=== PATIENT | female | born 1975 | race Hispanic/Latino ===

== ENCOUNTER 2019-10-04 13:12 | Emergency (ER) | payer OTHER, MEDICAID, SELFPAY ==
[2019-10-04 13:14] VITALS: BP 107/73; PULSE 76; RESP 20; TEMP 37.2; O2SAT 99
[2019-10-04 13:50] LABS: Influenza A - CEPHEID Flu A NEGATIVE (NEGATIVE); Influenza B - CEPHEID Flu B POSITIVE (NEGATIVE)
--- NOTE | 2019-10-04 14:05 | ED_ITS ---
HPI - Fever <KAELA WhiteheadP- - Last Filed: 10/04/19 18:03> General Chief Complaint: Fever Stated Complaint: flu symptoms Time Seen by Provider: 10/04/19 13:45 Source: patient and family Mode of arrival: Ambulatory Limitations: no limitations History of Present Illness HPI Narrative: The patient is a 44 year female nonsmoker who denies pertinent medical history presents with chief complaint of 5 days of sore throat, muscle aches, fevers and chills. 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 She denies any nausea vomiting or diarrhea. She denies any ear pain or current abdominal pain she denies any dysuria urgency or frequency. She does complain of a dry cough. Review of Systems <[facility] - Last Filed: 10/04/19 18:03> Review of Systems Narrative: GENERAL: see HPI HEENT: See HPI RESPIRATORY: Denies dyspnea, cough, wheezing, hemoptysis, sputum. CARDIOVASCULAR: Denies chest pain, palpitations, orthopnea, edema, GASTROINTESTINAL: Denies nausea, vomiting, abdominal pain, diarrhea, constipation, melena. : Denies dysuria, frequency, incontinence, hematuria, urinary retention. MUSCULOSKELETAL: denies weakness, joint pain, or bony pain SKIN: Denies rash, skin lesions, or other NEUROLOGIC: Denies weakness, headache, numbness, change in speech, confusion, seizures, incoordination. PSYCHIATRIC: No concerning psychosocial issues. 12 point review of systems is negative except for those stated above Exam <KAELA WhiteheadP- - Last Filed: 10/04/19 18:03> Narrative Exam Narrative: GENERAL: This is a well-nourished, well-developed patient, lying on stretcher with mask on HEAD: Atraumatic. Normocephalic. No temporal or scalp tenderness. EYES: Pupils equal round and reactive. Extraocular motions intact. No scleral icterus. No injection or drainage. ENT: Nose without bleeding, purulent drainage or septal hematoma. Throat without erythema, tonsillar hypertrophy or exudate. Uvula midline. Airway patent. NECK: Trachea midline. No JVD or lymphadenopathy. Supple, nontender, no meningeal signs. CARDIOVASCULAR: Regular rate and rhythm without murmurs, gallops, or rubs. RESPIRATORY: Clear to auscultation. Breath sounds equal bilaterally. No wheezes, rales, or rhonchi. No cough. No increased respiratory effort. No accessory muscle use. GASTROINTESTINAL: Abdomen soft, non-tender, nondistended. No hepato- splenomegaly, or palpable masses. No guarding. Active bowel sounds all 4 quadrants. EXTREMITIES: No clubbing, cyanosis, or edema. No joint tenderness, effusion, or edema noted. BACK: Nontender without deformity or crepitance. No flank tenderness. NEURO: AOx3. SKIN: No rash or erythema. Initial Vital Signs Initial Vital Signs: Vital Signs Temperature 98.9 F 10/04/19 13:14 Pulse Rate 76 10/04/19 13:14 Respiratory Rate 20 10/04/19 13:14 Blood Pressure 107/73 10/04/19 13:14 Pulse Oximetry 99 10/04/19 13:14 <Iaz Hernandez DO - Last Filed: 10/04/19 18:52> Initial Vital Signs Initial Vital Signs: Vital Signs Temperature 98.9 F 10/04/19 13:14 Pulse Rate 76 10/04/19 13:14 Respiratory Rate 20 10/04/19 13:14 Blood Pressure 107/73 10/04/19 13:14 Pulse Oximetry 99 10/04/19 13:14 Course <JUJU WhiteheadBC - Last Filed: 10/04/19 18:03> Orders Ordered: ED Orders 10/04/19 13:20 Influenza A & B (PCR) Stat 10/04/19 14:09 Strep Grp A by PCR Rapid Stat Vital Signs Vital signs: Vital Signs - 8 hr 10/04/19 13:14 10/04/19 14:53 Temperature 98.9 F Pulse Rate 76 70 Respiratory Rate 20 16 Blood Pressure 107/73 111/81 Pulse Oximetry 99 99 <Iza Hernandez DO - Last Filed: 10/04/19 18:52> Orders Ordered: ED Orders 10/04/19 13:20 Influenza A & B (PCR) Stat 10/04/19 14:09 Strep Grp A by PCR Rapid Stat Vital Signs Vital signs: Vital Signs - 8 hr 10/04/19 13:14 10/04/19 14:53 Temperature 98.9 F Pulse Rate 76 70 Respiratory Rate 20 16 Blood Pressure 107/73 111/81 Pulse Oximetry 99 99 MDM - Fever <Nataly Banuelos MANAGER [employer] - Last Filed: 10/04/19 18:03> Lab Data Labs: Lab Results 10/04/19 10/04/19 Range/Units 13:20 14:09 Influenza A (RT-PCR) Flu a negative (NEGATIVE) Influenza B (RT-PCR) Flu b positive H (NEGATIVE) Group A Strep (PCR) Negative MDM Narrative Medical decision making narrative: The patient is a 44-year-old female presents with a chief complaint muscle aches chills and fever. She tested positive for the flu. She is concerned about strep throat as she has a sore throat. She tested negative for strep throat. I discussed at length rest, [id number] measures, pushing fluids. Encouraged PCP follow up if worsening or no improvement. Discussed coming back to the ER for any acute concerns such as inability keep down fluids etcetera. Patient is out of window for Tamiflu. No questions or concerns upon discharge states understanding of return precautions as well as follow-up care. <Iza Hernandez DO - Last Filed: 10/04/19 18:52> Lab Data Labs: Lab Results 10/04/19 10/04/19 Range/Units 13:20 14:09 Influenza A (RT-PCR) Flu a negative (NEGATIVE) Influenza B (RT-PCR) Flu b positive H (NEGATIVE) Group A Strep (PCR) Negative Discharge Plan Departure Patient Disposition: Home Clinical Impression: Influenza B Discharge Date/Time: 10/04/19 14:54 Instructions: DI for Influenza -- Adult Activity Restrictions/Additional Instructions: You tested positive for the flu today. You tested negative for strep. Please rest, push fluids use [id number] medications as needed and able. I've given you a note for several days off of work. Please follow-up with primary care provider, I've given you contact information to the [facility] learning disabilities resource teacher in case you do not have a Referrals: [facility] [Outside] Stand Alone Forms: Work Release Note
[2019-10-04 14:31] LABS: Strep Grp A by PCR Rapid Negative
[2019-10-04 14:53] VITALS: BP 111/81; PULSE 70; RESP 16; O2SAT 99
== END 2019-10-04 14:54 | disposition home or self-care (01) ==
PROVIDERS: Emergency Medicine; Emergency Provider Nurse Practitioner Family
DX: J10.1 Influenza due to other identified influenza virus with other respiratory manifestations (principal)
CPT/HCPCS: 87502; 87651; 99282

== ENCOUNTER 2020-07-16 14:11 | Emergency (ER) | payer OTHER, MEDICAID, SELFPAY ==
[2020-07-16 14:19] VITALS: BP 158/74; PULSE 72; RESP 12; TEMP 36.7; O2SAT 99; BMI 21.4
[2020-07-16 14:23] VITALS: BP 158/74
[2020-07-16] MEDS: PROPARACAINE 0.5% OPHTH SOL 2 DROPS EYE-RIGHT (15:09)
[2020-07-16] MEDS: FLUORESCEIN 1 MG STRIP EYE-RIGHT (15:09)
[2020-07-16] MEDS: POLYMYXIN B SULF/TRIMETH OPHTH 10 ML 2 DROPS EYE-RIGHT (15:57)
--- NOTE | 2020-07-16 22:47 | ED_ITS ---
HPI - Eye Problem <IVAN Gasca - Last Filed: 07/16/20 23:03> General Chief complaint: Eye Problems Stated complaint: rt eye irritated/ burning 2x days Time Seen by Provider: 07/16/20 14:46 Source: patient Mode of arrival: Ambulatory Limitations: no limitations History of Present Illness HPI Narrative: This is a 45 year female, nonsmoker, has noncontributing history presents to ED with significant other with chief complaint of right eye discomfort for last 4 days. Patient reports occasional piercing pain with occasional foreign body sensation which became worse last 2 days. She reports crusty eye discharge when she woke up in the morning changed from white to yellow color. Patient reports her right eye has been constantly watery. She denies wearing contact lenses but uses reading glasses as needed. Patient denies vision changes except when her eyes are watery. Patient denies exposure to conjunctivitis and denies upper respiratory infection symptoms. Reports upd ated tetanus immunization. Related Data Allergies Allergy/AdvReac Type Severity Reaction Status Date / Time No Known Drug Allergies Allergy Verified 07/16/20 14:23 Review of Systems <IVAN Gasca - Last Filed: 07/16/20 23:03> Review of Systems Narrative: General: Denies fever, chills, fatigue, malaise, sweats. HEENT: See HPI Respiratory: Denies dyspnea, cough, wheezing, hemoptysis, sputum. Cardiovascular: Denies chest pain, palpitations, orthopnea, edema. Gastrointestinal: Denies nausea, vomiting, abdominal pain, diarrhea, constipation, melena. : Denies dysuria, frequency, incontinence, hematuria, urinary retention. Skin: Denies rash, skin lesions, or other. Neurologic: Denies weakness, headache, numbness, change in speech, confusion, seizures, incoordination. Psychiatric: No concerning psychosocial issues. 12-point review of systems is negative except for those stated above. Patient History <IVAN Gasca - Last Filed: 07/16/20 23:03> Surgical History History of bilateral tubal ligation (Acute) Social History Smoking Status: Never smoker Smoking Status: Never smoker alcohol intake frequency: a few times a month Alcohol type: wine Substance Use Type: does not use Exam <IVAN Gasca - Last Filed: 07/16/20 23:03> Narrative Exam Narrative: General appearance: well developed, well nourished, in no acute distress. Head: normocephalic, atraumatic, no scalp lesions, non-tender. ENT: Bilateral auditory canals and tympanic membranes clear. Hearing grossly in tact. Nose without bleeding, purulent discharge, septal hematoma or deviation. Turbinate without erythema or swelling. Facial sinuses nontender to palpate. Mucous membrane moist, no mucosal lesion. Throat without erythema, tonsillar hypertrophy or exudate. Uvula in midline, airway patent. Neck/Thyroid: neck supple, full range of motion, no visible masses or meningeal signs. No JVD, non-tender without lymphadenopathy. Skin: no suspicious rashes, lesions over visible areas. Warm and dry and appropriate color for ethnicity. Heart: no clubbing, no cyanosis, no edema. S1 and S2 normal. RRR w/o murmurs, clicks, or bruits. Lungs: Breathing even and unlabored. No stridor. No accessory muscles used. Able to speak in full sentences. Chest: normal shape and expansion. Abdomen: non-obese, non-distended. Neurologic: alert and oriented. 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 Psych: good eye contact, normal affect. Initial Vital Signs Initial Vital Signs: Vital Signs Temperature 98.0 F 07/16/20 14:19 Pulse Rate 72 07/16/20 14:19 Respiratory Rate 12 07/16/20 14:19 Blood Pressure 158/74 H 07/16/20 14:19 Pulse Oximetry 99 07/16/20 14:19 Eyes Alignment and Position: alignment normal and position normal Periorbital: periorbital findings normal Eyelids: eyelids normal Conjunctivae: conjunctival abnormality right conjunctival injection; Negative for conjunctival icterus, without chemosis, without discharge and without subconjunctival hemmorhages Sclera: sclerae normal Cornea: corneas normal and fluorescein used (No increase uptake) Pupils: PERRL, not dilated, not fixed, regular and pupil size (3 mm bilaterally) EOM: EOM intact bilaterally Direct ophthalmoscopy: normal light reflex, anterior chamber normal and photophobia not present Other: Patient was unable to tolerate tonometry test for IOP measurement even after using proparacaine. Manually palpated bilateral orbits without tenderness or tightness. OD 20/25, OS 20/30, OU 20/20 <Iza Hernandez DO - Last Filed: 07/22/20 07:32> Initial Vital Signs Initial Vital Signs: Vital Signs Temperature 98.0 F 07/16/20 14:19 Pulse Rate 72 07/16/20 14:19 Respiratory Rate 12 07/16/20 14:19 Blood Pressure 158/74 H 07/16/20 14:19 Pulse Oximetry 99 07/16/20 14:19 Scores <Ernesto IVAN Hernandez - Last Filed: 07/16/20 23:03> GCS [place] coma scale eye opening: Spontaneous [place] coma scale verbal response: Orientated [place] coma scale motor response: [place] coma scale total score: 15 Course <[facility] IVAN Hernandez - Last Filed: 07/16/20 23:03> Orders Ordered: Discontinued Medications Fluorescein Sodium (Ful-Yoselin) 1 mg EYE-RIGHT NOW ONE Stop: 07/16/20 14:47 Last Admin: 07/16/20 15:09 Dose: 1 mg Documented by: DORIS Polymyxin/Trimethoprim Sulfate (Polytrim) 2 drops EYE-RIGHT NOW ONE Stop: 07/16/20 15:20 Last Admin: 07/16/20 15:57 Dose: 2 drop Documented by: DORIS Polymyxin/Trimethoprim Sulfate (Polytrim) 2 drops EYE-RIGHT Q3H Stop: 07/16/20 23:59 Proparacaine HCl (Parcaine 0.5% Ophth Hanna) 2 drops EYE-RIGHT NOW ONE Stop: 07/16/20 14:47 Last Admin: 07/16/20 15:09 Dose: 2 drop Documented by: DORIS <Iza Hernandez DO - Last Filed: 07/22/20 07:32> Orders Ordered: Discontinued Medications Fluorescein Sodium (Ful-Yoselin) 1 mg EYE-RIGHT NOW ONE Stop: 07/16/20 14:47 Last Admin: 07/16/20 15:09 Dose: 1 mg Documented by: DORIS Polymyxin/Trimethoprim Sulfate (Polytrim) 2 drops EYE-RIGHT NOW ONE Stop: 07/16/20 15:20 Last Admin: 07/16/20 15:57 Dose: 2 drop Documented by: DORIS Polymyxin/Trimethoprim Sulfate (Polytrim) 2 drops EYE-RIGHT Q3H Stop: 07/16/20 23:59 Proparacaine HCl (Parcaine 0.5% Ophth Hanna) 2 drops EYE-RIGHT NOW ONE Stop: 07/16/20 14:47 Last Admin: 07/16/20 15:09 Dose: 2 drop Documented by: DORIS [facility] - Eye Problem <IVAN Gasca - Last Filed: 07/16/20 23:03> Differential Diagnosis Differential diagnosis: Likely corneal abrasion, conjunctivitis, glaucoma and corneal ulcer Medical Records Attestation: I reviewed the patient's medical records. MDM Narrative Medical decision making narrative: This is a 45 year female presents to ED with right eye discomfort for last 4 days which became worse with yellowish eye discharge for last 2 days. No vision changes. Visual acuity 20/25 in right eye, 20/30 in left eye, 20/20 in bilateral eyes. Physical exam appreciated conjunctival injection. No foreign body, corneal abrasion appreciated with fluorescein stain with Wood's lamp exam. Unable to major IOP due to patient was not able to tolerate the procedure. Physical exam by palpation did not appreciate swelling, taught/hard eye globes. Patient was treated with antibio tic eyedrops, Polytrim. Patient does not use contact lenses. Patient advised to follow-up with telegraphic typewriter operator if her symptoms not improving next 1-2 and to follow-up with primary care physician. Return precautions were discussed with patient and patient verbalized understanding in agreement with the treatment plan. Discharge Plan Departure Patient Disposition: Home Clinical Impression: Traumatic hematoma of left upper arm Conjunctivitis Qualifiers: Conjunctivitis type: unspecified Laterality: right Qualified Code(s): H10.9 - Unspecified conjunctivitis Discharge Date/Time: 07/16/20 16:01 Instructions: DI for Conjunctivitis Activity Restrictions/Additional Instructions: You have been diagnosed with [right eye conjunctivitis.]. What to do: *Take your medications as directed. Use the eyedrops 1 drop on right eye every 3 hours while your awake for next 7 days. *Follow up with your primary care provider in 2-3 days, call for an appointment. Let them know you were seen in the ED and that we asked you to be seen in follow up. Please follow-up with Dr. Levy if there is no improvement or worsening in next couple of days. *Return to ED if you have any new, worsening, or concerning symptoms, such as [increasing pain, decreased vision, vomiting, redness, swelling and warmth spreading to right-sided face, headache, chest pain, breathing difficulty, fever or any acute concerns]. Referrals: Bill Pena MD [Primary Care Provider] - Arron Levy MD [Physician] - <Iza Hernandez DO - Last Filed: 07/22/20 07:32> Cosign ED Attending Cosignature Attestation: I was immediately available in the department for consultation. Documentation has been reviewed. I agree with assessment and plan.
--- NOTE | 2020-07-23 12:02 | PC.NURSE ---
Demographics faxed to ophthalmology @ . Call back number is ([phone])
== END 2020-07-16 16:01 | disposition home or self-care (01) ==
PROVIDERS: Emergency Provider Nurse Practitioner Family; PCP Family Medicine
DX: H10.9 Unspecified conjunctivitis (principal); S40.022A Contusion of left upper arm, initial encounter
CPT/HCPCS: 99282

== ENCOUNTER 2020-11-17 15:13 | Emergency (ER) | payer OTHER, SELFPAY ==
[2020-11-17 15:19] VITALS: BP 126/66; PULSE 77; RESP 16; TEMP 36.4; O2SAT 100; BMI 21.6
--- NOTE | 2020-11-17 15:33 | ED.GENADULT ---
HPI - General Adult General Chief complaint: Upper Respiratory Symptoms Stated complaint: sore throat over a week, left side ear pain, cough Time Seen by Provider: 11/17/20 15:17 Source: patient Mode of arrival: Ambulatory Limitations: no limitations History of Present Illness HPI narrative: Patient is a 45-year-old female here for evaluation of sinus congestion, cough, sore throat and left ear pain. She states that she has had the symptoms for over week. Has tried tea and honey for the sore throat and also took Sudafed yesterday with only minimal improvement. No fevers. No recent travel. No recent antibiotics. No sick contacts. Related Data Allergies Allergy/AdvReac Type Severity Reaction Status Date / Time No Known Drug Allergies Allergy Verified 11/17/20 15:22 Review of Systems Constitutional Constitutional: Denies chills and Denies fever(s) ENT Ears, Nose, Mouth, and Throat: Denies vertigo, Denies dizziness, Reports sinus pressure and Reports sore throat Comments: Left ear pain Respiratory Respiratory: Reports cough Gastrointestinal Gastrointestinal: Denies nausea Integumentary/Breasts Skin/Breast: Denies lesions and Denies rash Neurologic Neurologic: Denies vertigo and Denies dizziness Psychiatric Psychiatric: Denies anxiety Hematologic/Lymphatic On Anticoagulants: No Allergic/Immunologic Allergic/Immunologic: Denies urticaria Patient History Medical History Healthy adult Surgical History History of bilateral tubal ligation Social History Smoking Status: Never smoker Smoking Status: Never smoker alcohol intake frequency: a few times a month Alcohol type: wine Substance Use Type: does not use Exam Initial Vital Signs Initial Vital Signs: Vital Signs Temperature 97.6 F 11/17/20 15:19 Pulse Rate 77 11/17/20 15:19 Respiratory Rate 16 11/17/20 15:19 Blood Pressure 126/66 11/17/20 15:19 Pulse Oximetry 100 11/17/20 15:19 Const General: cooperative and comfortable Limitations: mental status not altered HENMT Head: normal to inspection and normocephalic Ears: TM normal on the right, EAC's normal and TM abnormal bulging on the left and dull on the left Mouth: oral mucosae normal Throat: uvula midline and postnasal drainage Resp Effort & Inspection: normal respiratory effort Auscultation: clear to auscultation bilaterally Cardio Rate: regular rate Rhythm: regular rhythm Skin Lesions: no lesions Rashes: no rashes Neuro General: patient alert and patient awake Cognition: normal cognition Speech: speech normal Extrem General: capillary refill normal Psych Appearance: grossly normal and well kempt Course Vital Signs Vital signs: Vital Signs - 8 hr 11/17/20 15:19 Temperature 97.6 F Pulse Rate 77 Respiratory Rate 16 Blood Pressure 126/66 Pulse Oximetry 100 Medical Decision Making Lab Data Lab results reviewed: Yes I reviewed the patient's lab results. Labs: Point of Care Testing Rapid Strep A Negative Point of care testing: Point of Care Testing Rapid Strep A Negative MDM Narrative Medical decision making narrative: Rapid strep is negative. Patient is nontoxic. No respiratory distress. Low suspicion for pneumonia. Does have bulging left tympanic membrane without erythema. Given her other her presenting symptoms today do suspect upper respiratory infection. S most likely viral so will hold on antibiotics for now. We did discuss treatments that she can try at home and return precautions. She expressed understanding and agreement. Discharge Plan Departure Patient Disposition: Home Clinical Impression: Upper respiratory infection Instructions: DI for Viral Upper Respiratory Infection -- Adult Activity Restrictions/Additional Instructions: I do recommend that you start taking the Claritin on a daily basis as we discussed. Also recommend that you use a nasal spray such as Nasonex or Flonase for Afrin also like we discussed. The generic versions of these medicines are appropriate. Contact your primary provider for follow-up and Referrals: Bill Pena MD [Primary Care Provider] -
[2020-11-17 16:15] VITALS: BP 124/84; PULSE 79; RESP 16; O2SAT 99
== END 2020-11-17 16:16 | disposition home or self-care (01) ==
PROVIDERS: Emergency Provider Emergency Medicine; PCP Family Medicine
DX: J06.9 Acute upper respiratory infection, unspecified (principal); H92.02 Otalgia, left ear; R05 Cough
CPT/HCPCS: 87880; 99281; 99282